=== PATIENT | male | born 1960 | race Caucasian/White ===

== ENCOUNTER 2017-11-26 17:21 | Emergency (ER) | payer OTHER ==
[~2017-11-26] VITALS: Ht 180.3 cm; Wt 108.0 kg
[2017-11-26 18:36] VITALS: BP 108/71
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
--- NOTE | 2017-11-26 19:37 | CT SCAN REPORT ---
EXAMINATION: CT HEAD WITHOUT CONTRAST CT CERVICAL SPINE WITHOUT CONTRAST CLINICAL INFORMATION: Fall. Head trauma. COMPARISON: Head CT from 02/05/2009. TECHNIQUE: Contiguous axial imaging was performed from the skull base to vertex without intravenous administration of contrast. In addition, helical noncontrast CT imaging was acquired through the cervical spine and source images were reviewed along with axial reconstructions and sagittal and coronal MPRs. DLP: 1093 mGy-cm FINDINGS: HEAD: There is no hemorrhage, edema, mass effect, hydrocephalus, extra-axial collection, or shift of normally midline structures. There is chronic encephalomalacia in a small area of the high parasagittal right frontal lobe and in a large area of the right parietal lobe, stable from 2008. There is associated ex vacuo dilatation of the atrium and occipital horn of the right lateral ventricle. Otherwise the ventricles and sulci appear normal in caliber and configuration. No acute osseous abnormalities. There are stable changes after a remote right parietal craniotomy. No acute soft tissue abnormalities. The visualized orbits are unremarkable. CERVICAL SPINE: There is no evidence of fracture or traumatic subluxation. The atlantoaxial and atlantooccipital articulations are maintained. The intervertebral discs appear fairly normal in height. There is anterior osteophyte formation at C5-C6 and C6-C7. There is no significant bony canal stenosis. There is scattered facet hypertrophy at several levels, most notably on the right at C4-C5, and on the left at C2-C3 and C3-C4. There is a mild dextroconvex curvature which may be positional or related to a scoliosis. No paraspinal soft tissue abnormalities. There is mild prominence of the adenoid pad, most likely reactive. Tonsilliths are seen in the palatine tonsils. No discrete thyroid lesions. The partially visualized esophagus is dilated with debris within it compatible with dysmotility. The visualized lung apices demonstrate some paraseptal emphysematous change. IMPRESSION: 1. No acute intracranial pathology. Stable chronic changes as above. 2. No CT evidence of acute cervical spine fracture or traumatic subluxation. Mild cervical spondylosis without high-grade bony canal stenosis. 3. Partially visualized dilated esophagus with luminal debris suggesting dysmotility.
== END 2017-11-26 19:52 ==
LOC: ERH 17:21
DX: S09.90XA Unspecified injury of head, initial encounter (principal); M54.2 Cervicalgia; W00.0XXA Fall on same level due to ice and snow, initial encounter; Y93.01 Activity, walking, marching and hiking; Y92.9 Unspecified place or not applicable